=== PATIENT | female | born 1985 | race Two or more races ===

== ENCOUNTER 2024-07-21 11:16 | Outpatient (REF) | payer SELFPAY ==
--- OUTSIDE RECORDS SUMMARY | 2024-07-21 13:07 | XMS_ITS | Encounter Summary ---
Author Organization [employer] Address [address] [place] [address] Care Team Providers Care Associate Professor Of Archaeology Name Role Phone Corwin Blank MD Primary Care Prov ider Encounter Details Date Type Department Care Team (Latest Contact Info) Description 07/21/2024 Travel Social History Tobacco Use Types Packs/Day Years Used Date Smoking Tobacco: Never Smokeless Tobacco: Never Alcohol Use Standard Drinks/Week Comments Yes 0 (1 standard drink = 0.6 oz pur e alcohol) 2-3 times a year Depression Answer Date Recorded Patient Health Questionnaire-9 Score 0 05/25/2024 Patient Health Questionnaire-9 Score 0 05/25/2024 Last PHQ-9: Questionnaire Data Not on file 0 05/25/2024 Housing Stability Answer Date Recorded What is your housing situation today? I have carol reji 05/25/[address] you li ve. Do you have problems with any of the following? None of the above 05/25/2024 Food Insecurity Answer Date Recorded Within the past 12 months, y ou worried that your food would run out before you got money to buy more: Never True 05/25/2024 Within the past 12 months,th e food you bought just didn't last and you didn't have enough money to get more: Never True 12/2024 Transportation Answer Date Recorded In the past 12 months, has l ack of transportation kept you from medical appts, meetings, work or from getting things needed for daily living? No 05/25/2024 Utilities Answer Date Recorded In the past 12 months, has t he electric, gas, oil or water company threatened to shut off services in your home? No 05/25/2024 Depression Answer Date Recorded Patient Health Questionnaire-2 Score 0 05/25/2024 Internet Access Answer Date Recorded Internet Access Q1 Yes 05/25/2024 Internet Access Q2 Not on file 05/25/2024 Comments Unknown Sex and Gender Information Value Date Recorded Sex Assigned at Female 01/15/2022 10:23 AM EDT Legal Sex Female 10:23 AM EDT Gender Identity Female 04/30/2024 3:00 PM EST Sexual Orientation Straight 05/25/2024 12 :29 PM EDT documented as of this encounter Plan of Treatment Upcoming Encounters Date Type Department Care Team (Late st Contact Info) Description 08/26/2024 9:00 AM EDT Office Visit [facility] [address] [place] [address] Corwin Blank MD [address] [place] [address] documented as of this encounter Visit Diagnoses Not on filedocumented in this encounter Additional Health Concerns Assessment Noted Time PHQ-9 Depression Total Score: 0 05/26/19 25 1:15 PM EDT documented as of this encounter Care Teams Associate Professor Of Archaeology Relationship Specialty Start Date End Date Corwin Blank MD [address] [place] [address] PCP - General Internal Medicine 07/01/24 documented as of this encounter
--- OUTSIDE RECORDS SUMMARY | 2024-07-21 13:08 | XMS_ITS | Encounter Summary ---
Author Organization [employer] Address [address] [place] [address] Care Team Providers Care Trial Court Justice Name Role Phone Corwin Blank MD Primary Care Prov ider Encounter Details Date Type Department Care Team (Late st Contact Info) Description 07/21/2024 Telephone [facility] [address] [place], [place] [phone] Corwin Blank MD [address] [place] [address] Social History Tobacco Use Types Packs/Day Years [...] is your housing situation today? I have carolviet mendoza 05/25/[address] you li [...] PM EDT documented as of this encounter Miscellaneous Notes * Telephone Encounter - Mitzi Delgadillo RN - 07/21/2024 11:13 AM EDT Pt after appt stated needing TB test for work. documented in this encounter Plan of Treatment Upcoming Encounters Date Type Department Care Team (Late st Contact Info) Description 08/26/2024 9:00 AM EDT Office Visit [facility] [address] [place] [address] Corwin Blank MD [address] [place] [address] documented as of this encounter Visit Diagnoses Not on filedocumented in this encounter Additional Health Concerns Assessment Noted Time PHQ-9 Depression Total Score: 0 05/26/19 1:15 PM EDT documented as of this encounter Care Teams Trial Court Justice Relationship Specialty Start Date End Date Corwin Blank MD [address] [place] [address] PCP - General Internal Medicine 07/01/24 documented as of this encounter
--- OUTSIDE RECORDS SUMMARY | 2024-07-21 13:08 | XMS_ITS | Clinical Summary ---
Author Organization [facility] Address [address] [place] [address] Phone Care Team Providers Care Therapist Asst Name Role Phone Corwin Blank Primary Care Provide r Encounters Date Type Department Care Team Description 06/17/2024 11:00 AM EDT - 06/17/2024 11:59 PM EDT Hospital [facility] [address] [phone] Discharge Disposition: Home or Self Care from Last 3 Months Social History Tobacco Use Types Packs/Day Years Used Date Smoking Tobacco: Never Assessed Comments No Sex and Gender Information Value Date Recorded Sex Assigned at Female 06/03/2024 1:12 PM EDT Legal Sex Female 3:19 PM EST Gender Identity Female 06/03/2024 1:12 PM EDT Sexual Orientation Straight 06/15/2024 5: 04 PM EDT Obstetrics History Para Term AB IAB SAB Ectopic Multiple Livin g Live Births 2 Last Filed Vital Signs Vital Sign Reading Time Taken Comments Blood Pressure - - Pulse - - Temperature - - Respiratory Rate - - Oxygen Saturation - - Inhaled Oxygen Concentration - - Weight 77.1 kg (170 lb) 06/17/2024 11:12 AM EDT Height 162.6 cm (5' 4 ) 06/17/2024 11:12 AM EDT Body Mass Index 29.18 06/17/2024 11:12 AM EDT Plan of Treatment Health Maintenance Due Date Last Done Comments Cervical Cancer Screening: P ap Smear 11/07/2004 HIV Screening 04/16/2023 Hepatitis C Screening 04/16/2023 Social Influencers of Health Screening 04/16/2023 COVID-19 Vaccine (1 - 2023-2 5 season) 2023 DTaP,Tdap,and Td Vaccines (3 - Td or Tdap) 12/23/2023 12/22/2013, 04/25/2010 Influenza Vaccine (Season Ended) 2024 02/20/2018, 12/08/2013 Depression Screening 05/25/2025 05/25/2024 Breast Cancer Screening 06/17/2026 06/17/2024 Hepatitis B Vaccines Completed 07/02/2007, 11/19/2006, 06/26/2006 HIB Vaccines Aged Out No longer eligi ble based on patient's age to complete this topic HPV Vaccines Aged Out No longer eligi ble based on patient's age to complete this topic Hepatitis A Vaccines Aged Out No long er eligible based on patient's age to complete this topic IPV Vaccines Aged Out No longer eligi ble based on patient's age to complete this topic MMR Vaccines Aged Out No longer eligi ble based on patient's age to complete this topic Meningococcal ACWY Vaccine Aged Out N o longer eligible based on patient's age to complete this topic Meningococcal B Vaccine Aged Out No l onger eligible based on patient's age to complete this topic Pneumococcal Vaccine: Pediatrics (0 to 5 Years) and At-Risk Patients (6 to 64 Years) Aged Out No longer eligible b ased on patient's age to complete this topic RSV Immunization Patients Under 20 months Aged Out No longer eligible b ased on patient's age to complete this topic Varicella Vaccines Aged Out No longer eligible based on patient's age to complete this topic Procedures Procedure Name Priority Date/Time Associated Diagnosis Comments MG MAMMO DIGITAL SCREENING W IMTIAZ BILAT Routine 06/17/2024 11:35 AM EDT Encounter for screening mammogram for malignant neoplasm of breast from Last 3 Months Results * MG Mammo Digital Screening w Imtiaz bilat (06/17/2024 11:35 AM EDT) Anatomical Region Laterality Modality Breast Bilateral Mammography 06/18/2024 8:34 AM EDT Impressions 06/18/2024 8:36 AM EDT No evidence of breast malignancy. BI-RADS CATEGORY: 1 - NEGATIVE RECOMMENDATION: Screening bilateral mammogram is recommended in 1 year. Mammo Location: [facility], [address] [place] [address], [id number], . -------- FINAL REPORT -------- Dictated By: Lilian Callejas Dictated Date: 06/18/2024 08:34 ET Assigned Physician: Lilian Callejas Reviewed and Electronically Signed By: Lilian Callejas Signed Date: 06/18/2024 08:36 ET Workstation ID: [id number] Transcribed By: Self Edit Transcribed Date: 06/18/2024 08:34 ET Narrative 06/18/2024 8:36 AM EDT CLINICAL: 38 years old, Female, routine annual exam. ??Baseline exam. COMPARISON: No prior studies. ?? TECHNIQUE: Bilateral MLO and CC views were obtained digitally with 3-D mammogram (digital breast tomosynthesis). Computer-aided detection was utilized in evaluation of this exam (CAD). FINDINGS: There is no evidence of suspicious mass or architectural distortion. ??No worrisome calcifications are evident. BREAST DENSITY: B - There are scattered areas of fibroglandular density. Procedure Note Lilian Callejas MD - 06/18/2024 CLINICAL: 38 years old, Female, routine annual exam. Baseline exam. COMPARISON: No prior studies. TECHNIQUE: Bilateral MLO and CC views were obtained digitally with 3-Dmammogram (digital breast tomosynthesis). Computer-aided detection wasutilized in evaluation of this exam (CAD). FINDINGS: There is no evidence of suspicious mass or architectural distortion. Noworrisome calcifications are evident. BREAST DENSITY: B - There are scattered areas of fibroglandular density. IMPRESSION: No evidence of breast malignancy. BI-RADS CATEGORY: 1 - NEGATIVE RECOMMENDATION: Screening bilateral mammogram is recommended in 1 year. Mammo Location: [facility], [address] [place] [address], [address], . -------- FINAL REPORT -------- Dictated By: Lilian Callejas Dictated Date: 06/18/2024 08:34 ET Assigned Physician: Lilian Callejas Reviewed and Electronically Signed By: Lilian Callejas Signed Date: 06/18/2024 08:36 ET Workstation ID: [id number] Transcribed By: Self Edit Transcribed Date: 06/18/2024 08:34 ET Corwin Forrester IMG BI PROCEDURES Fin al Result from Last 3 Months Insurance [employer] [place] [id number] Care Teams Therapist Asst Relationship Specialty Start Date End Date Corwin Blank [address] [place] [id number] PCP - General Internal Medicine 06/03/24
--- OUTSIDE RECORDS SUMMARY | 2024-07-21 13:08 | XMS_ITS | Clinical Summary ---
Author Organization [employer] Address [address] [place] [address] Care Team Providers Care Automatic Data Processing Planner Name Role Phone Corwin Blank MD Primary Care Prov ider Allergies No known active allergies Medications triamcinolone (Kenalog) 0.1 % cream Apply topically if needed in the morning and at bedtime (pain and swelling). 30 g 5 Active Active Problems Problem Noted Date Diagnosed Date History of tubal ligation 07/21/2024 Overview (07/21/2024): tubal ligation in 03/2014 Headache 07/21/2024 Mass of upper inner quadrant of right breast 08/2024 Assessment & Plan (07/21/2024 11:14 AM EDT): R upper inner quadrant mass - Order diagnostic mammography and breast US following CRICO guidelines - Follow up on results when available Cervical cancer screening 07/21/2024 Assessment & Plan (07/21/2024 11:15 AM EDT): 38 y.o. here for cervical cancer screening. Will continue monitoring following ASCCP guidelines. Tuberculosis screening 07/21/2024 Encounter for medical examination to establish c are 05/25/2024 Assessment & Plan (05/25/2024 1:57 PM EDT): Last pcp visit >10yrs ER: chest/back pain March 2024 [facility] Hospitalization: - Pmhx: asthma Pshx: gallbladder 2017, csec 2014 All:- Meds: - A0 LMP: 05/25/24 Menarche: 11yrs Pap smear: >10yrs Encounter for screening mamm ogram for malignant neoplasm of breast 05/25/2024 Encounters Date Type Department Care Team Description 07/21/2024 10:40 AM EDT Procedure Visit [facility] [address] [place] [address] Abimbola Lawrence MD Encounter for immunization (Primary Dx); Mass of upper inner quadrant of right breast; Cervical cancer screening; Tuberculosis screening 07/21/2024 Telephone [facility] [address] [place] [address] Corwin Blank MD 07/21/2024 Travel 06/11/2024 Telephone [facility] [address] [place] [address] Corwin Blank MD Referral 05/25/2024 1:45 PM EDT Telemedicine [facility] [address] [place] [address] Corwin Blank MD Encounter for medical examination to establish care (Primary Dx); Encounter for screening mammogram for malignant neoplasm of breast 05/22/2024 Telephone [facility] [address] [place] [address] Corwin Blank MD chart prep from Last 3 Months Immunizations Name Administration Dates Next Due Hep B, Unspecified 07/02/2007,11/19/2006, 007 Influenza, IIV3, injectable 02/20/2018 Influenza, seasonal, injecta ble, preservative free 12/08/2013 Tdap 07/21/2024,12/22/2013,04/25/2010 Family History Medical History Relation Name Comments Hyperlipidemia Father Lymphoma Maternal Cousin Diabetes Mother Hyperlipidemia Sister Relation Name Status Comments Father Maternal Cousin Alive Mother Sister Social History Tobacco Use Types Packs/Day Years Used Date Smoking Tobacco: Never Smokeless Tobacco: Never Tobacco Cessation:Counseling Given: Not Answered Alcohol Use Standard Drinks/Week Comments Yes 0 (1 standard drink = 0.6 oz pur e alcohol) 2-3 times a year Depression Answer Date Recorded Patient Health Questionnaire-9 Score 0 05/25/2024 Patient Health Questionnaire-9 Score 0 05/25/2024 Last PHQ-9: Questionnaire Data Not on file 0 05/25/2024 Housing Stability Answer Date Recorded What is your housing situation today? I have carol mendoza 05/25/[address] you [...] Orientation Straight 05/25/2024 12 :29 PM EDT Last Filed Vital Signs Vital Sign Reading Time Taken Comments Blood Pressure 114/78 07/21/2024 10:48 AM EDT Pulse 82 07/21/2024 10:48 AM EDT Temperature 36.7 ??C (98.1 ??F) 07/21/2024 10:48 AM E DT Respiratory Rate 20 07/21/2024 10:48 AM EDT Oxygen Saturation 98% 07/21/2024 10:48 AM EDT Inhaled Oxygen Concentration - - Weight 79.5 kg (175 lb 3.2 oz) 07/21/2024 10:48 AM EDT Height 162 cm (5' 3.78 ) 07/21/2024 10:48 AM EDT Body Mass Index 30.28 07/21/2024 10:48 AM EDT Plan of Treatment Upcoming Encounters Date Type Department Care Team (Late st Contact Info) Description 08/26/2024 9:00 AM EDT Office Visit [facility] [address] [place] [address] Corwin Blank MD [address] [place] [address] Health Maintenance Due Date Last Done Comments HIV Screening 1983 Family Planning (PISQ) 11/07/1998 Hepatitis C Screening 11/07/2001 Pap Smear 11/07/2004 Cervical Cancer Screening 11/07/2013 HPV/Cotest 11/07/2013 COVID-19 Vaccine (2023-2 5 season) 2023 Influenza Vaccine (#1) 2024 8, 12/08/2013 Postponed from 11/17/2023 (Patient Refused) Alcohol/Substance Use Screening 05/25/2025 05/25/2024 Depression Screening 05/25/2025 05/25/2024, 05/25/2024 SDOH Screening 05/25/2025 05/25/2024 Tobacco Screening 07/21/2025 07/21/2024 Mammogram 06/17/2026 06/17/2024, 06/17/2024 Zoster Vaccines (1 of 2) 11/07/2033 DTaP/Tdap/Td Vaccines (4 - T d or Tdap) 07/21/2034 07/21/2024, 12/22/2013, 04/25/2010 RSV Patients and Patients Aged 60 years or older (1 - 1-dose 75+ series) 11/07/2058 Hepatitis B Vaccines Completed 07/02/2007, 11/19/2006, 06/26/2006 [...] patient's age to complete this topic Meningococcal Vaccine Aged Out No tre bella eligible based on patient's age to complete this topic Pneumococcal Vaccine: Pediatrics (0 to 5 Years) and At-Risk Patients (6 to 49) Years) Aged Out No longer eligible b ased on patient's age to complete this topic RSV under 20 months Aged Out No longe r eligible based on patient's age to complete this topic Rotavirus Vaccines Aged Out No longer eligible based on patient's age to complete this topic Insurance GENERIC COMMERCIAL MD [place] [id number] Care Teams Automatic Data Processing Planner Relationship Specialty Start Date End Date Corwin Blank MD [address] [place] [address] PCP - General Internal Medicine 07/01/24
--- OUTSIDE RECORDS SUMMARY | 2024-07-21 13:08 | XMS_ITS | Encounter Summary ---
Author Organization [employer] Address [address] [place] [address] Care Team Providers Care Sheriff Detective Name Role Phone Corwin Blank MD Primary Care Prov ider Reason for Referral * Imaging (Routine) - Authorized Specialty Diagnoses / Procedures Referred By Contac t Referred To Contact Radiology Diagnoses Mass of upper inner quadrant of right breast Procedures BI Mammogram Diagnostic Tomosynthesis Right Abimbola Lawrence MD [address] [place] [address] Phone: tel: fax: [address] Phone: tel: fax: Referral ID Status Reason Start Date Expiration Date V isits Requested Visits Authorized [id number] Authorized 07/21/2024 07/21/2025 1 1 * Imaging (Routine) - Authorized Specialty Diagnoses / Procedures Referred By Contac t Referred To Contact Radiology Diagnoses Mass of upper inner quadrant of right breast Procedures BI US Breast Complete Right Abimbola Lawrence MD [address] [place] [address] Phone: tel: fax: [address] Phone: tel: fax: Referral ID Status Reason Start Date Expiration Date V isits Requested Visits Authorized [id number] Authorized 07/21/2024 07/21/2025 1 1 Reason for Visit * Reason Comments Cervical Cancer Screening Encounter Details Date Type Department Care Team (Latest Contact Info) Description 07/21/2024 10:40 AM EDT Procedure Visit [facility] PEDS [address] [place] [address] Abimbola Lawrence MD [address] [place] [address] Encounter for immunization (Primary Dx); Mass of upper inner quadrant of right breast; Cervical cancer screening; Tuberculosis screening Social History Tobacco Use Types Packs/Day Years [...] PM EDT documented as of this encounter Last Filed Vital Signs Vital Sign Reading [...] Mass Index 30.28 07/21/2024 10:48 AM EDT documented in this encounter Progress Notes * Abimbola Lawrence MD - 07/21/2024 10:40 AM EDT Images from the original note were not included. Subjective Patient ID: Lian Gong is a 38 y.o. female who presents for Cervical Cancer Screening. 38 y.o. female here for annual well woman preventive exam. LMP: Patient's last menstrual period was 07/03/2024 (approximate). Sexual activity: Social History Substance and Sexual Activity Sexual activity: Yes Partners: Male control/protection: Female Sterilization intention: BC method: Smoking hx: Tobacco Use: Low Risk (07/21/2024) ? Tobacco ? Smoking Tobacco Use: Never ? Smokeless Tobacco Use: Never ? Passive Exposure: Not on file Alcohol use hx: Social History Substance and Sexual Activity Alcohol use: Yes Comment: 2-3 times a year OBHx: # 1 - Date: None, Sex: None, Weight: None, GA: None, Type: None, Apgar1: None, Apgar5: None, Living: None, Comments: None # 2 - Date: None, Sex: None, Weight: None, GA: None, Type: None, Apgar1: None, Apgar5: None, Living: None, Comments: None IPV: Denies IPV Reviewed family hx Review of patient's family history indicates: Problem: Diabetes Relation: Mother Name: Age of Onset: (Not Specified) Problem: Hyperlipidemia Relation: Father Name: Age of Onset: (Not Specified) Problem: Hyperlipidemia Relation: Sister Name: Age of Onset: (Not Specified) Problem: Lymphoma Relation: Maternal Cousin Name: Age of Onset: (Not Specified) Health Maintenance: No results found for: HMPAP , HMMAMMO , HMCOLON Review of Systems Constitutional: Negative for appetite change, fatigue and fever. HENT: Negative for congestion, postnasal drip and rhinorrhea. Eyes: Negative for discharge and redness. Respiratory: Negative for apnea, cough, chest tightness and shortness of breath. Cardiovascular: Negative for chest pain. Gastrointestinal: Negative for abdominal pain. Endocrine: Negative for polyphagia. Genitourinary: Negative for difficulty urinating, dysuria and urgency. Musculoskeletal: Negative for arthralgias. Neurological: Negative for dizziness, light-headedness, numbness and headaches. Hematological: Negative for adenopathy. Does not bruise/bleed easily. Objective Visit Vitals BP 114/78 (BP Location: Right arm, Patient Position: Sitting, BP Cuff Size: Large adult) Pulse 82 Temp 98.1 ??F (36.7 ??C) (Oral) Resp 20 Ht 5' 3.78 (1.62 m) Wt 175 lb 3.2 oz (79.5 kg) LMP 07/03/2024 (Approximate) SpO2 98% BMI 30.28 kg/m?? Smoking Status Never BSA 1.89 m?? Physical Exam Vitals reviewed. Exam conducted with a customer service trainer present. HENT: Head: Normocephalic and atraumatic. Pulmonary: Effort: Pulmonary effort is normal. Chest: Chest wall: No deformity, tenderness or crepitus. Breasts: Breasts are symmetrical. Right: Mass present. No inverted nipple, nipple discharge, skin change or tenderness. Left: Normal. No inverted nipple, mass, nipple discharge, skin change or tenderness. Genitourinary: Vagina: Normal. Cervix: Normal. Rectum: Normal. Comments: Skin tag Musculoskeletal: Cervical back: Normal range of motion. Lymphadenopathy: Upper Body: Right upper body: No supraclavicular, axillary or pectoral adenopathy. Left upper body: No supraclavicular, axillary or pectoral adenopathy. Psychiatric: Mood and Affect: Mood normal. Assessment/Plan Problem List Items Addressed This Visit Mass of upper inner quadrant of right breast R upper inner quadrant mass - Order diagnostic mammography and breast US following CRICO guidelines - Follow up on results when available Relevant Orders BI US Breast Complete Right BI Mammogram Diagnostic Tomosynthesis Right Cervical cancer screening 38 y.o. here for cervical cancer screening. Will continue monitoring following ASCCP guidelines. Relevant Orders Pap Smear HPV High Risk with Reflex to Subtypes Tuberculosis screening Relevant Orders T-SPOT??.TB Other Visit Diagnoses Encounter for immunization - Primary Relevant Orders TDAP VACCINE 7 yrs + (Completed) documented in this encounter Miscellaneous Notes * Assessment & Plan Note - Abimbola Lawrnece MD - 07/21/2024 11:15 AM EDT Associated Problem(s): Cervical cancer screening 38 y.o. here for cervical cancer screening. Will continue monitoring following ASCCP guidelines. * Assessment & Plan Note - Abimbola Lawrence MD - 07/21/2024 11:14 AM EDT Associated Problem(s): Mass of upper inner quadrant of right breast R upper inner quadrant mass - Order diagnostic mammography and breast US following CRICO guidelines - Follow up on results when available documented in this encounter Plan of Treatment Upcoming Encounters Date Type Department Care Team (Late st Contact Info) Description 08/26/2024 9:00 AM EDT [facility] [address] [place], [place] [phone] Corwin Blank MD [address] [place] [address] Scheduled Orders Name Type Priority Associated Diagnoses Order Schedule BI US Breast Complete Right Imaging Routine Mass of upper inner quadrant of right breast Expected: 07/21/2024, Expires: 07/21/2025 BI Mammogram Diagnostic Tomosynthesis Right Imaging Routine Mass of upper inner quadrant of right breast Expected: 07/21/2024, Expires: 09/20/2025 Pap Smear Pathology and Cytology Routine Cervical cancer screening Ordered: 07/21/2024 HPV High Risk with Reflex to Subtypes Lab Routine Cervical cancer screening Ordered: 07/21/2024 T-SPOT??.TB Lab Routine Tuberculosis screening Expected: 07/21/2024 (Approximate), Expires: 07/21/2025 documented as of this encounter Visit Diagnoses Diagnosis Encounter for immunization- Primary Mass of upper inner quadrant of right breast Cervical cancer screening Screening for malignant neoplasm of the cervix Tuberculosis screening Screening examination for pulmonary tuberculosis documented in this encounter Additional Health Concerns Assessment Noted Time PHQ-9 Depression Total Score: 0 05/26/19 1:15 PM EDT documented as of this encounter Care Teams Sheriff Detective Relationship Specialty Start Date End Date Corwin Blank MD [address] [place] [id number] PCP - General Internal Medicine 07/01/24 documented as of this encounter
[2024-07-24 12:44] LABS: TS Negative Control Passed; TS Panel A 0; TS Panel B 1; TS Positive Control Passed; TSpotTB Negative (Negative)
[2024-07-28 14:23] LABS: HPV Genotype 16 Negative (Negative); HPV Genotype 18 Negative (Negative); HPV High Risk Positive (Negative)
== END 2024-07-21 11:17 | disposition home or self-care (01) ==
LOC: HO.CHCLDS 11:16
PROVIDERS: Visit Provider Family Medicine
DX: Z12.4 Encounter for screening for malignant neoplasm of cervix (principal); Z11.1 Encounter for screening for respiratory tuberculosis
CPT/HCPCS: 36415; 86481; 87626; 88175

== ENCOUNTER 2024-08-26 09:38 | Outpatient (REF) | payer SELFPAY ==
--- OUTSIDE RECORDS SUMMARY | 2024-08-26 10:35 | XMS_ITS | Clinical Summary ---
Author Organization [employer] Address [address] [place] [address] Care Team Providers Care Electric Meter Technician Name Role Phone Corwin Blank MD Primary Care Prov ider Allergies No known active allergies Medications triamcinolone (Kenalog) 0.1 % cream Apply topically if needed in the morning and at bedtime (pain and swelling). 30 g 5 Active Active Problems Problem Noted Date Diagnosed Date ASCUS with positive high risk HPV cervical 08/05 History of tubal ligation 07/21/2024 Overview (07/21/2024): [...] visit >10yrs ER: chest/back pain March 2024 [facility] Hospitalization: - Pmhx: asthma Pshx: gallbladder 2018, [facility] 2014 All:- Meds: - A0 LMP: 05/25/24 Menarche: 11yrs Pap smear: >10yrs Encounter for screening mamm ogram for malignant neoplasm of breast 05/25/2024 Encounters Date Type Department Care Team Description 08/26/2024 9:00 AM EDT Office Visit [facility] [address] [place] [address] Corwin Blank MD Obesity (BMI 30.0-34.9) (Primary Dx) 08/26/2024 Travel 08/17/2024 Patient Outreach [address] [address] Corwin Blank MD Pre-visit Planning (SDOH screening completed on 05/25/24) 08/06/[address] [address] Corwin Blank MD Call Back Request 08/05/2024 Telephone [facility] [address] [place] [address] Abimbola Lawrence MD 07/29/2024 Results Follow-Up [facility] [address] [place] [address] Abimbola Lawrence MD BI US Breast Complete Right 07/21/2024 10:40 AM EDT Procedure Visit [facility] [address] [place] [address] Abimbola Lawrence MD Encounter for immunization (Primary Dx); Mass of upper inner quadrant of right breast; Cervical cancer screening; Tuberculosis screening 07/21/2024 Telephone [facility] [address] [place] [address] Corwin Blank MD 07/21/2024 Travel 06/11/[address] [address] Corwin Blank MD Referral from Last 3 Months Immunizations Immunization Administration Dates Next Due Hep B, Unspecified [...] Sign Reading Time Taken Comments Blood Pressure 132/84 08/26/2024 9:04 AM EDT Pulse 82 08/26/2024 9:04 AM EDT Temperature 36.6 ??C (97.8 ??F) 08/26/2024 9:04 AM ED T Respiratory Rate 20 08/26/2024 9:04 AM EDT Oxygen Saturation 98% 07/21/2024 10:48 AM EDT Inhaled Oxygen Concentration - - Weight 78.9 kg (174 lb) 08/26/2024 9:04 AM EDT Height 160 cm (5' 3 ) 08/26/2024 9:04 AM EDT Body Mass Index 30.82 08/26/2024 9:04 AM EDT Plan of Treatment Health Maintenance Due Date Last Done Comments HIV Screening 1985 Disability Screening 1985 Family Planning (PISQ) 11/07/1998 Hepatitis C Screening 11/07/2001 COVID-19 Vaccine ( season) 2023 Influenza Vaccine (Season Ended) 2024 02/20/2018, 12/08/2013 Alcohol/Substance Use Screening 05/25/2025 05/25/2024 Depression Screening 05/25/2025 05/25/2024, 05/26/19 25 SDOH Screening 05/25/2025 05/25/2024 Tobacco Screening 07/21/2025 07/21/2024 Mammogram 07/28/2026 07/28/2024, 07/16, 07/28/2024, Additional history exists Pap Smear 07/22/2027 07/21/2024 Cervical Cancer Screening 07/21/2029 HPV/Cotest 07/21/2029 07/21/2024 Zoster Vaccines (1 of 2) 11/07/2033 DTaP/Tdap/Td Vaccines (4 - Td or Tdap) 07/21/2034 07/21/2024, 12/22/2013, 04/25/2010 RSV [...] 49) Years) Aged Out No longer eligible based on patient's age to complete this topic RSV under 20 months Aged Out No longe r eligible based on patient's age to complete this topic Rotavirus Vaccines Aged Out No longer eligible based on patient's age to complete this topic Procedures Procedure Name Priority Date/Time Associated Diagnosis Comments BI US BREAST COMPLETE RIGHT Routine 07/28/2024 Mass of upper inner quadrant of right breast T-SPOT(R).TB Routine 07/21/2024 11:18 AM EDT Tuberculosis screening PAP SMEAR Routine 07/21/2024 11:12 AM EDT Cervical cancer screening HPV DNA, LOW/HIGH RISK Routine 07/21/2024 11:12 AM EDT Cervical cancer screening from Last 3 Months Results * BI US Breast Complete Right (07/28/2024) Anatomical Region Laterality Modality Breast Right Ultrasound us Abimbola Lawrence MD [facility] US PROCEDURES Final Resul t * T-SPOT??.TB (07/21/2024 11:18 AM EDT) T Spot TB Negative Negative [facility] Comment:A negative test resu lt does not exclude the possibilityof exposure to or infection with Mycobacteriumtuberculosis (M. tuberculosis). Patients with recentexposure to TB infected individuals exhibiting anegative T-SPOT.TB result should be considered forretesting within 6 weeks or if other relevant clinicalsymptoms indicate. Results from T-SPOT.TB testing mustbe used in conjunction with each individual'sepidemiological history, current medical status,and results of other diagnostic evaluations.The T-SPOT.TB test is qualitative and results arereported as positive, borderline, or negative, giventhat the test controls perform as expected. In linewith the Centers for Disease Control and Prevention's2010 recommendation to report quantitative measurementsalongside the qualitative result, the laboratoryprovides spot counts for informational purposes only.The T-SPOT.TB test should not be interpreted as aquantitative test. TS PANEL A 0 [facility] TS PANEL B 1 [facility] Negative Control Passed [facility] Positive Control Passed [facility] Comment:For additional infor mation, please refer tohttp://education.SensioL[employer]/faq/YTF995(This link is being provided for informational/educational purposes only.)REPORT COMMENT:RECD IN CHANTILLYTHIS TEST WAS PERFORMED AT:[employer] [id number] [place] [address]CCVCJSNMADISON JENKINS MD,PHD 07/21/2024 11:1 8 AM EDT 07/21/2024 2:28 PM EDT us Abimbola Lawrence MD LAB BLOOD ORDERABLES Final Re sult [facility] [address] [place] [phone] * (ABNORMAL) HPV High Risk with Reflex to Subtypes (07/21/2024 11:12 AM EDT) HPV High Risk Positive(A) Negative [facility] HPV Genotype 16 Negative Negative [facility] HPV Genotype 18 Negative Negative [facility] Comment:HPV testing performe d at [facility] (CLIA#[id number]), [address] [place] [address].Testing for HPV was performed using the Konstantin SABI Note0system. The presence of HPV in the female genital tract isassociated with a number of diseases, including cervicalcarcinoma. The HPV DNA high risk pool tests for HPV 31, 33,35, 39, 45, 51, 52, 56, 58, 59, 66 and 68. The testing forHPV 16 and 18 genotypes has also been performed. A positiveresult indicates detection of nucleic acid sequences fromone or more subtypes, whereas a negative result indicatessuch sequences were not detected. Pap Vial 07/21/2024 11:1 2 AM EDT 07/22/2024 6:00 AM EDT us Abimbola Lawrence MD LAB BLOOD ORDERABLES Final Re sult [facility] [address] [place] [phone] * Pap Smear (07/21/2024 11:12 AM EDT) Swab 07/21/2024 11:1 2 AM EDT 07/22/2024 6:00 AM EDT Narrative [facility] - 07/28/2024 8:21 PM EDT ----- ------- Name: Demota-Martinez,Lian M ? Age/Sex: 38/F ? : 1985 Unit#: [id number] ?? Attend Dr: Abimbola Lawrence MD ?Re07/21/24 ?Status: DEP REF ? Location: [facility] ? Disch: ? ----- ------- SPEC : [id number] ? RECD: 07/22/24 ? STATUS: ??SOUT ? REQ NUM: [id number] ? APOLLO: 07/21/24 ? SUBM DR: Abimbola Lawrence MD ? ENTERED: ??07/22/24 ?SP TYPE: Pap Smr ?OTHR : ? ORDERED: ??Pap Smear, PAP path review ? Interpretation ?? General Category: ?? Epithelial cell abnormality. ?? Adequacy: ?Endocervical component absent. ?? Interpretation: ?Atypical squamous cells of undetermined significance. ? HPV High Risk: ??Positive ? HPV Genotyping 16: ??Negative ?? HPV Genotyping 18: ??Negative ?Clinical Information LMP:07/03/24 Previous PAP test:Unknown date/findings ? Material Received ?? ThinPrep-Cervical ----- ------- Signed (signature on file) Dipti Arley 07/28/242020 ? ----- ------- ? END OF REPORT ? us Abimbola Lawrence MD LAB CYTOLOGY ORDERABLES Final Result [facility] [address] [place] [phone] from Last 3 Months Insurance #1 [place] [address] GENERIC COMMERCIAL MD BUBBA [id number] Care Teams Electric Meter Technician Relationship Specialty Start Date End Date Corwin Blank MD [address] [place] [phone] PCP - General Internal Medicine 07/01/24
[2024-08-26 14:26] LABS: MANUAL DIFF FLAG NO
[2024-08-26 14:33] LABS: Basophils Absolute Auto 0.1 X10*3/uL (0.0-0.2); Basophils Percent Auto 0.9 % (0-2); Eosinophils Absolute Auto 0.1 X10*3/uL (0.0-0.4); Eosinophils Percent Auto 1.7 % (0-4); Hematocrit 27.9 % (37.0-47.0); Hemoglobin 7.6 g/dl (12.0-16.0); Imm Gran Abs Auto 0.02 X10*3/uL (0.00-0.03); Imm Gran Pct Auto 0.3 % (0.0-0.4); Lymphocytes Absolute Auto 2.2 X10*3/uL (1.2-4.9); Lymphocytes Percent Auto 37.6 % (20-40); Mean Corpuscular HGB Conc 27.2 g/dl (31.0-35.0); Mean Corpuscular Hemoglobin 16.1 pg (27.0-33.0); Mean Platelet Volume 9.9 fL (9.4-12.3); Monocytes Absolute Auto 0.5 X10*3/uL (0.1-1.2); Neutrophils Percent Auto 51.5 % (45-73); Platelet Count 412 X10*3/uL (160-400); Red Blood Count 4.71 X10*6/uL (4.20-5.50); Red Cell Distribution Width 21.7 % (11.0-16.0); White Blood Count 5.8 X10*3/uL (4.8-10.8)
[2024-08-26 14:34] LABS: Mean Corpuscular Volume 59.2 fL (80.0-98.0)
[2024-08-26 15:02] LABS: Alanine Aminotransferase 14 U/L (0-31); Alkaline Phosphatase 62 U/L (39-117); Anion Gap 9 (12-20); Aspartate Amino Transferase 22 U/L (5-31); Bilirubin Total 0.3 mg/dL (0.0-1.0); Blood Urea Nitrogen 14 mg/dL (9-16); Calcium 9.5 mg/dL (8.4-10.2); Carbon Dioxide 24 mmol/L (22-29); Chloride 106 mmol/L (96-108); Cholesterol 139 mg/dL (<200); Estimated Glomerular Filt Rate > 60; Glucose Random 84 mg/dL (60-115); HDL Cholesterol 44 mg/dL (>40); LDL Cholesterol Calculated 85 mg/dL (<100); Potassium 4.1 mmol/L (3.3-5.1); Sodium 135 mmol/L (135-145); Total Protein 7.2 g/dL (6.5-8.0); Triglycerides 51 mg/dL (<150)
[2024-08-26 15:09] LABS: TSH reflex Free T4 1.14 uIU/mL (0.32-4.0)
[2024-08-26 15:43] LABS: Estimated Average Glucose 111 mg/dL; Hemoglobin A1c % 5.5 % (<6.0)
[2024-08-27 08:10] LABS: HIV AB/AG Nonreactive (Nonreactive); HIV Num 1 0.07 S/CO (0.00-0.99); ~HepC Num1 0.15 S/CO (0.00-0.79); ~Hepatitis C Antibody Nonreactive (Nonreactive)
== END 2024-08-26 09:39 | disposition home or self-care (01) ==
LOC: HO.CHCLDS 09:38
PROVIDERS: Visit Provider Internal Medicine
DX: E66.811 Obesity, class 1 (principal)
CPT/HCPCS: 36415; 80053; 80061; 83036; 84443; 85025; 86803; 87389

== ENCOUNTER 2024-08-27 08:42 | Outpatient (REF) | payer SELFPAY ==
--- OUTSIDE RECORDS SUMMARY | 2024-08-27 09:04 | XMS_ITS | Clinical Summary ---
Author Organization [employer] Address [address] [place] [address] Care Team Providers Care Design Verification Engineer Name Role Phone Corwin Blank MD Primary Care Prov ider Allergies No known active allergies Medications triamcinolone (Kenalog) 0.1 % cream Apply topically if needed in the morning and at bedtime (pain and swelling). 30 g 5 Active Active Problems Problem Noted Date Diagnosed Date Obesity (BMI 30.0-34.9) 08/26/2024 Assessment & Plan (08/26/2024 12:45 PM EDT): Encouraged low calorie diet, exercise as tolerated, follow up as needed ASCUS with positive high risk HPV cervical 08/05 Assessment & Plan (08/26/2024 12:43 PM EDT): Referred for colposcopy, pending ob-bowling ball grader appointment History of tubal ligation 07/21/2024 Overview (07/21/2024): [...] visit >10yrs ER: chest/back pain March 2024 [facility] Hospitalization: - Pmhx: asthma Pshx: gallbladder 2018, [facility] 2014 All:- Meds: - A0 LMP: 05/25/24 Menarche: 11yrs Pap smear: >10yrs Encounter for screening mamm ogram for malignant neoplasm of breast 05/25/2024 Encounters Date Type Department Care Team Description 08/26/2024 9:00 AM EDT Office Visit [facility] [address] [place] [address] Corwin Blank MD Obesity (BMI 30.0-34.9) (Primary Dx); Dietary counseling; Exercise counseling; ASCUS with positive high risk HPV cervical 08/26/2024 Telephone [facility] [address] [place] [address] Corwin Blank MD Results; Lab Orders 08/26/2024 Orders Only [facility] [address] [place] [address] Corwin Blank MD Anemia, unspecified type (Primary Dx) 08/26/2024 Travel 08/17/2024 Patient Outreach [facility] [address] [place] [phone] Corwin Blank MD Pre-visit Planning (SDOH screening completed on 05/25/24) 08/06/[address] [address] Corwin Blank MD Call Back Request 08/05/2024 Telephone [facility] [address] [place] [address] Abimbola Lawrence MD 07/29/2024 Results Follow-Up [facility] [address] [place] [address] Abimbola Lawrence MD BI US Breast Complete Right 07/21/2024 10:40 AM EDT Procedure Visit [facility] [address] [place] [address] Abimbola Lawrence MD Encounter for immunization (Primary Dx); Mass of upper inner quadrant of right breast; Cervical cancer screening; Tuberculosis screening 07/21/2024 Telephone [facility] [address] [place] [address] Corwin Blank MD 07/21/2024 Travel 06/11/2024 Telephone [facility] [address] [place] [address] Corwin Blank MD Referral from Last 3 [...] Date Last Done Comments HIV Screening 1985 08/26/2024 Disability Screening 1985 Family Planning (PISQ) 11/07/1998 Hepatitis C Screening 11/07/2001 08/26/2024 COVID-19 Vaccine ( season) 2023 Influenza Vaccine [...] Procedure Name Priority Date/Time Associated Diagnosis Comments HEPATITIS C AB W/REFL TO HCV RNA, QN, PCR Routine 08/26/2024 9:45 AM EDT Obesity (BMI 30.0-34.9) HIV 1/2 ANTIGEN/ANTIBODY, FOURTH GENERATION W/RFL Routine 08/26/2024 9:45 AM EDT Obesity (BMI 30.0-34.9) TSH W/REFLEX TO FT4 Routine 08/26/2024 9 :45 AM EDT Obesity (BMI 30.0-34.9) HEMOGLOBIN A1C Routine 08/26/2024 9:45 AM EDT Obesity (BMI 30.0-34.9) LIPID PANEL, STANDARD Routine 08/26/2024 9:45 AM EDT Obesity (BMI 30.0-34.9) COMPREHENSIVE METABOLIC PANEL Routine 08/26/2024 9:45 AM EDT Obesity (BMI 30.0-34.9) CBC WITH AUTO DIFFERENTIAL Routine 08/26/2024 9:45 AM EDT Obesity (BMI 30.0-34.9) BI US BREAST COMPLETE RIGHT Routine 07/28/2024 Mass of upper inner quadrant of right breast T-SPOT(R).TB Routine 07/21/2024 11:18 AM EDT Tuberculosis screening PAP SMEAR Routine 07/21/2024 11:12 AM EDT Cervical cancer screening HPV DNA, LOW/HIGH RISK Routine 11:12 AM EDT Cervical cancer screening from Last 3 Months Results * TSH W/Reflex to FT4 (08/26/2024 9:45 AM EDT) TSH reflex Free T4 1.14 0.32 - 4.0 uIU/mL [facility] Blood Venous blood specimen / Unknown 08/26/2024 9:45 AM EDT 08/26/2024 2:20 PM EDT us Corwin Forrester MD LAB BLOOD ORDERABL ES Final Result [facility] [address] [place] [phone] * (ABNORMAL) CBC auto differential (08/26/2024 9:45 AM EDT) White Blood Count 5.8 4.8 - 10.8 X10*3/uL [facility] Red Blood Count 4.71 4.20 - 5.50 X10*6/uL [facility] Hemoglobin 7.6(L) 12.0 - 16.0 g/dl [facility] Hematocrit 27.9(L) 37.0 - 47.0 % [facility] Mean Corpuscular Volume 59.2(L) 80.0 - 98.0 fL [facility] Mean Corpuscular Hemoglobin 16.1(L) 27.0 - 33.0 pg [facility] Mean Corpuscular HGB Conc 27.2(L) 31.0 - 35.0 g/dl [facility] Red Cell Distribution Width 21.7(H) 11.0 - 16.0 % [facility] Platelet Count 412(H) 160 - 400 X10*3/uL [facility] Mean Platelet Volume 9.9 9.4 - 12.3 fL [facility] Neutrophils Percent Auto 51.5 45 - 73 % [facility] Imm Gran Pct Auto 0.3 0.0 - 0.4 % [facility] Lymphocytes Percent Auto 37.6 20 - 40 % [facility] Monocytes Percent Auto 8.0 2 - 11 % [facility] Eosinophils Percent Auto 1.7 0 - 4 % [facility] Basophils Percent Auto 0.9 0 - 2 % [facility] NRBC Pct Auto 0.0 0.0 - 0.2 /100WBC [facility] Neutrophils Absolute Auto 3.0 2.0 - 8.3 x10*3/uL [facility] Imm Gran Abs Auto 0.02 0.00 - 0.03 X10*3/uL [facility] Lymphocytes Absolute Auto 2.2 1.2 - 4.9 X10*3/uL [facility] Monocytes Absolute Auto 0.5 0.1 - 1.2 X10*3/uL [facility] Eosinophils Absolute Auto 0.1 0.0 - 0.4 X10*3/uL [facility] Basophils Absolute Auto 0.1 0.0 - 0.2 X10*3/uL [facility] NRBC Abs Auto 0.000 0.0 - 0.012 X10*3/uL [facility] Blood Venous blood specimen / Unknown 08/26/2024 9:45 AM EDT 08/26/2024 2:20 PM EDT Corwin Forrester MD LAB BLOOD ORDERABL ES Final Result Performing Organization Address [facility]/ZIP Co de Phone Number [facility] [address] [place] [phone] * Hepatitis C Antibody with Reflex to HCV, RNA, Quantitative, Real-Time PCR (08/26/2024 9:45 AM EDT) Hepatitis C Antibody Nonreactive Nonreactive [facility] Comment:Antibodies to HCV no t detected; does not exclude early acuteHCV infection. Blood Venous blood specimen / Unknown 08/26/2024 9:45 AM EDT 08/26/2024 2:20 PM EDT us Corwin Forrester MD LAB BLOOD ORDERABL ES Final Result Performing Organization Address [facility] Co de Phone Number [facility] [address] [place] [phone] * HIV-1/2 Antigen and Antibodies, Fourth Generation, with Reflexes (08/26/2024 9:45 AM EDT) HIV AB/AG Nonreactive Nonreactive [facility] Comment:HIV-1 p24 Ag and/or HIV-1/HIV-2 Ab not detected.A test result that is nonreactive does not exclude thepossibility of exposure to or infection with HIV-1 and/orHIV-2. Nonreactive results in this assay for individualswith prior exposure to HIV-1 and/or HIV-2 may be due toantigen and antibody levels that are below the limit ofdetection of this assay.The BandPage HIV Ag/Ab Combo assay result andsupplemental assay results should be interpreted inconjunction with the patient's clinical presentation,history and other laboratory results. If the results areinconsistent with clinical evidence, additional testing issuggested to confirm the result. Blood Venous blood specimen / Unknown 08/26/2024 9:45 AM EDT 08/26/2024 2:20 PM EDT Corwin Forrester MD LAB BLOOD ORDERABL ES Final Result Performing Organization Address [facility] Co de Phone Number [facility] [address] [place] [phone] * Hemoglobin A1c (08/26/2024 9:45 AM EDT) Hemoglobin A1c 5.5 <6.0 % [facility] Comment:Hemoglobin A1C Refer ence Range Adults: 4.8 - 6.0 % Non diabetic: < 6.0 % Goal: < 7.0 %Additional Action Suggested: > 8.0 %Note: Hemoglobin A1c results are invalid for patients with abnormal amounts of HbF. Blood transfusions may impact the HbA1c concentration in the patient sample. Estimated Average Glucose 111 mg/dL [facility] Comment:eAG = Estimated ave rage glucose which is %A1C expressed asaverage glucose, using the formula of the F8A-QyrsgvsWpfwwxd Glucose study (ADAG), Diabetes Care, Vol.31,#8,Oct. 2007 Blood Venous blood specimen / Unknown 08/26/2024 9:45 AM EDT 08/26/2024 2:20 PM EDT Corwin Forrester MD LAB BLOOD ORDERABL ES Final Result Performing Organization Address [facility] Co de Phone Number [facility] [address] [place] [phone] * Lipid Panel, Standard (08/26/2024 9:45 AM EDT) Triglycerides 51 <150 mg/dL [facility] Comment:Desirable Triglyceri de: less than 150 mg/dLBorderline High Triglyceride 150-199 mg/dLHigh Triglyceride: 200-499 mg/dLVery High Triglyceride: greater than or equal to 5OO mg/dL Cholesterol 139 <200 mg/dL [facility] Comment:Desirable Cholestero l: less than 200 mg/dLBorderline High Cholesterol: 200-239 mg/dLHigh Cholesterol: greater than 239 mg/dL LDL Cholesterol Calculated 85 <100 mg/dL [facility] Comment:Desirable LDL: less than 100 mg/dLNear Optimal/Above Optimal LDL: 110- 129 mg/dLBorderline High LDL: 130-159 mg/dLHigh LDL: 160-189 mg/dLVery High LDL: greater than or equal to 190 mg/dL HDL Cholesterol 44 >40 mg/dL [facility] Comment:Desirable HDL: great er than 40 mg/dL Note: This HDL assay may give artificially low results in patients with liver disease. Blood Venous blood specimen / Unknown 08/26/2024 9:45 AM EDT 08/26/2024 2:20 PM EDT Corwin Forrester MD LAB BLOOD ORDERABL ES Final Result [facility] [address] [place] [phone] * (ABNORMAL) Comprehensive Metabolic Panel (08/26/2024 9:45 AM EDT) Sodium 135 135 - 145 mmol/L [facility] Potassium 4.1 3.3 - 5.1 mmol/L [facility] Chloride 106 96 - 108 mmol/L [facility] Carbon Dioxide 24 22 - 29 mmol/L [facility] Anion Gap 9(L) 12 - 20 [facility] Urea Nitrogen (BUN) 14 9 - 16 mg/dL [facility] Creatinine, Serum 0.54 0.5 - 1.4 mg/dL [facility] Estimated Glomerular Filt Rate >60 [facility] Comment:Chronic Kidney Disea se: Estimated GFR < 60 mL/min/1.88f2Vpqppa Kidney Disease: Estimated GFR < 15 mL/min/1.73m2 Glucose 84 60 - 115 mg/dL [facility] Calcium 9.5 8.4 - 10.2 mg/dL [facility] Bilirubin, Total 0.3 0.0 - 1.0 mg/dL [facility] Aspartate Amino Transferase 22 5 - 31 U/L [facility] Alanine Aminotransferase 14 0 - 31 U/L [facility] Total Protein 7.2 6.5 - 8.0 g/dL [facility] Albumin Level 4.0 3.5 - 5.0 g/dL [facility] Alkaline Phosphatase 62 39 - 117 U/L [facility] Blood Venous blood specimen / Unknown 08/26/2024 9:45 AM EDT 08/26/2024 2:20 PM EDT us Corwin Forrester MD LAB BLOOD ORDERABL ES Final Result [facility] [address] [place] [phone] * BI US Breast Complete Right (07/28/2024) Anatomical Region Laterality Modality Breast Right Ultrasound us Abimbola Lawrence MD IMG US PROCEDURES Final Resul t * T-SPOT??.TB (07/21/2024 11:18 AM EDT) T Spot TB Negative Negative [facility] Comment:A negative test resu lt [...] as aquantitative test. TS PANEL A 0 [facility] TS PANEL B 1 [facility] Negative Control Passed [facility] Positive Control Passed [facility] Comment:For additional infor mation, please refer tohttp://education.Tech urSelf/faq/VFZ697(This link is being provided for informational/educational purposes only.)REPORT COMMENT:RECD IN CHANTILLYTHIS TEST WAS PERFORMED AT:[employer] [id number] [place] [address]RAKNHSAMADISON JENKINS MD,PHD 07/21/2024 11:1 8 AM EDT 07/21/2024 2:28 PM EDT us Abimbola Lawrence MD LAB BLOOD ORDERABLES Final Re sult [facility] [address] [place] [phone] * (ABNORMAL) HPV High Risk with Reflex to Subtypes (07/21/2024 11:12 AM EDT) HPV High Risk Positive(A) Negative [facility] HPV Genotype 16 Negative Negative [facility] HPV Genotype 18 Negative Negative [facility] Comment:HPV testing performe d at [facility] (CLIA#[id number]), [address] [place] [address].Testing for HPV was performed using the Konstantin SABI 6800system. The presence of HPV in the female [...] MD LAB BLOOD ORDERABLES Final Re sult [facility] [address] [place] [phone] * Pap Smear (07/21/2024 11:12 AM EDT) Swab 07/21/2024 11:1 2 AM EDT 07/22/2024 6:00 AM EDT Narrative [facility] - 07/28/2024 8:21 PM EDT ----- ------- Name: Demota-Martinez,Lian M ? Age/Sex: 38/F ? : 1985 Unit#: [id number] ?? Attend Dr: Abimbola Lawrence MD ?Re07/21/24 ?Status: DEP REF ? Location: [facility] ? Disch: ? ----- ------- SPEC : [id number] ? RECD: 07/22/24 ? STATUS: ??SOUT ? REQ NUM: [id number] ? APOLLO: 07/21/24-1111 ? SUBM DR: Abimbola Lawrence MD ? [...] ----- ------- Signed (signature on file) Dipti [place] 07/28/242020 ? ----- ------- ? END OF REPORT ? us Abimbola Lawrence MD LAB CYTOLOGY ORDERABLES Final Result [facility] [address] [place] [phone] from Last 3 Months Insurance #1 [place] [address] GENERIC COMMERCIAL MD BUBBA [id number] Care Teams Design Verification Engineer Relationship Specialty Start Date End Date Corwin Blank MD [address] [place] [phone] PCP - General Internal Medicine 07/01/24
[2024-08-27 14:17] LABS: Hematocrit 26.6 % (37.0-47.0); Hemoglobin 7.3 g/dl (12.0-16.0)
[2024-08-27 15:05] LABS: Folate 10.6 ng/mL (> or = 4.0); Vitamin B12 465 pg/mL (200-900)
[2024-08-27 15:36] LABS: Percent Iron Saturation 68 % (15-50)
[2024-08-28 11:27] LABS: Bilirubin Direct < 0.2 mg/dL (0.0-0.5); Bilirubin Total 0.2 mg/dL (0.0-1.0); Lactate Dehydrogenase 293 U/L (122-220)
[2024-08-28 11:32] LABS: Haptoglobin 99 mg/dL (35-250)
[2024-08-28 13:54] LABS: Hematocrit 27.8 % (35.0-45.0); Hemoglobin 7.5 g/dL (11.7-15.5); MCH 16.6 pg (27.0-33.0); MCV 61.5 fL (80.0-100.0); RBC 4.52 Million/uL (3.80-5.10); RDW 20.1 % (11.0-15.0)
[2024-09-02 10:47] LABS: Iron 263 mcg/dL (30-160)
[2024-09-02 10:48] LABS: Total Iron Binding Capacity 385 mcg/dL (228-428); Unsaturated Iron Binding 122 ug/dL
== END 2024-08-27 08:43 | disposition home or self-care (01) ==
LOC: HO.CHCLDS 08:42
PROVIDERS: Visit Provider Internal Medicine
DX: D64.9 Anemia, unspecified (principal)
CPT/HCPCS: 36415; 82247; 82248; 82607; 82746; 83010; 83020; 83540; 83615; 85014; 85018; 85041

== ENCOUNTER → 2024-09-02 08:47 | Outpatient (BNV) | payer OTHER, SELFPAY | PROVIDERS: PCP Internal Medicine; Referring Provider Internal Medicine; Visit Provider Nurse Practitioner Family | DX: D64.9 Anemia, unspecified (principal) | CPT/HCPCS: 99204 ==

== ENCOUNTER 2024-10-14 08:30 | Outpatient (RCR) | payer OTHER, SELFPAY ==
[2024-09-23 09:04] VITALS: BP 113/78; PULSE 68; RESP 18; TEMP 36.6
[2024-09-30 08:53] VITALS: BP 126/76; PULSE 66; RESP 16; TEMP 36.6; O2SAT 96
[2024-10-07 09:05] VITALS: BP 139/84; PULSE 65; RESP 16; TEMP 36.6; O2SAT 99
[2024-10-14 08:30] VITALS: BP 130/82; PULSE 67; RESP 16; TEMP 36.6; O2SAT 98
[2024-10-14 09:00] LABS: Hematocrit 35.7 % (37.0-47.0); Hemoglobin 10.8 g/dl (12.0-16.0); Mean Corpuscular HGB Conc 30.3 g/dl (31.0-35.0); Mean Corpuscular Hemoglobin 20.8 pg (27.0-33.0); Mean Corpuscular Volume 68.9 fL (80.0-98.0); NRBC Abs Auto 0.000 X10*3/uL (0.0-0.012); NRBC Pct Auto 0.0 /100WBC (0.0-0.2); Platelet Count 307 X10*3/uL (160-400); Red Blood Count 5.18 X10*6/uL (4.20-5.50); White Blood Count 6.0 X10*3/uL (4.8-10.8)
[2024-10-14 09:26] LABS: Ferritin 162 ng/mL (10-250)
== END 2024-10-14 09:11 | disposition home or self-care (01) ==
LOC: HO.INF 08:30
PROVIDERS: Visit Provider Nurse Practitioner Family
DX: D64.9 Anemia, unspecified (principal)
CPT/HCPCS: 36415; 82728; 85027; 96365; 96374; J1756

== ENCOUNTER → 2024-10-26 14:00 | Outpatient (REF) | payer OTHER, SELFPAY ==
--- NOTE | 2024-10-26 14:03 | CA_ITS ---
Transthoracic Echocardiogram Patient (Last, First, Middle): Lian Soto M Gender: Female Date of : 1985 Age: 38 Procedure Date: 10/26/2024 Procedure Type: Transthoracic Echocardiogram Location: OP Height: 162.56 cm Weight: 77.11 kg BSA: 1.83 m2 Heart Rate: bpm BP: 144 / 80 mmHg Outreach Worker: HANSEL Referring MD: Awa Prado NP Symptoms: Newly recognized heart murmur, orthopnea x 4 weeks Study Quality: Adequate ECG Rhythm: Sinus Conclusions: - The left ventricular systolic function is normal. The calculated ejection fraction is 62% by biplane method. - No obvious valvular pathology seen on this study. Findings Left Ventricle Normal left ventricular cavity size. There is normal left ventricular wall thickness. The left ventricular systolic function is normal. The calculated ejection fraction is 62% by biplane method. There is no evidence of regional wall motion abnormalities. Diastolic function is normal for age. Right Ventricle Normal right ventricular cavity size and systolic function. Atria The left atrium is mildly dilated. The right atrium is normal in size. Aortic Valve There is a normal trileaflet aortic valve. There is no aortic valve stenosis. There is no aortic valve regurgitation. Mitral Valve The mitral valve appears normal. There is no mitral valve regurgitation. There is no mitral valve stenosis. Pulmonic Valve The pulmonic valve is likely normal. Tricuspid Valve There is trace tricuspid valve regurgitation. There is no evidence of pulmonary hypertension. Great Vessels The asc aorta and aortic arch are normal in size. Venous The inferior vena cava is normal in size and collapses greater than 50% with inspiration. Pericardium/Pleural There is no evidence of pericardial effusion. Prior Study Comparison No prior study available for comparison. Recommendations, Care & Conclusions No obvious valvular pathology seen on this study. Measurements 2D Linear Measurements IVSd: 1.09 0.6-0.9/0.6-1.0 cm LVIDd: 4.17 3.9-5.3/4.2-5.9 cm LVIDd Index: 2.28 2.4-3.2/2.2-3.1 cm/m2 LVIDs: 2.84 2.0-3.6 cm LVPWd: 1.09 0.7-1.1 cm LA Diam: 3.80 2.7-3.8/3.0-4.0 cm LAIDs Index: 2.08 1.5-2.3 cm/m2 LV Mass: 190.88 67-162/88-224 g LV Mass Index: 104.30 43-95/49-115 g/m2 LVOT Diam: 2.00 3.0+(-)1.3 cm 2D Systolic Function EF 4C: 65.50 >55% EF 2C: 61.50 >55% EF BiP: 61.90 >55% Mitral Valve MV Pk E: 1.30 MV PK A: 0.99 MV Decel Time: 217.00 E/A: 1.30 E'Lateral: 10.60 E'Medial: 8.05 E/E' Med: 16.10 E/E' Lat: 12.30 PHT: 64.00 MVA PHT: 3.44 Decel Hawkins: 6.00 Aortic Valve AoV Pk Amanuel: 1.91 AoV Mn Amanuel: 1.32 AoV VTI: 0.45 AoV Pk Grad: 15.00 Aov Mn Grad: 8.00 DARRICK Cont.VTI: 1.96 LVOT LVOT Pk Amanuel: 1.40 LVOT Mn Amanuel: 0.94 LVOT VTI: 0.28 LVOT Pk Grad: 8.00 LVOT Mn Grad: 4.00 LVOT Diam: 2.00 LVOT Area: 3.14 Diastolic Function MV Pk E: 1.30 MV Pk A: 0.99 E/A: 1.30 E'Medial: 8.05 E/E' Med: 16.10 E' Laterial: 10.60 E/E' Lat: 12.30 Right Ventricle TAPSE (mm): 2.39 TVS' Amanuel: 14.10 Tricuspid Valve TR Pk Amanuel: 2.01 TR Pk Grad: 16.00 RA Press: 3.00 RVSP: 19.00 Great Vessels Aorta Sinus of Valsalva: 2.62 2.0-3.[address] Ridge: 2.19 1.7-3.4 cm Ao Asc: 3.00 2.1-3.4 cm Ao Arch: 2.70 Updated in Other Vendor System with Status of Final Kenney Wynn MD electronically signed on 10/27/2024 11:57:51 AM with status of Final
--- OUTSIDE RECORDS SUMMARY | 2024-10-26 14:28 | XMS_ITS | Clinical Summary ---
Author Organization [facility] Address [address] [address] Phone Care Team Providers Care Resident Services Manager Name Role Phone Pcp, Unknown Primary Care Provider Unavailabl e Allergies No known active allergies Medications No known medications Social History Tobacco Use Types Packs/Day Years Used Date Smoking Tobacco: Never Assessed Education Answer Date Recorded Are you interested in more education? Not on mohini e 02/09/2023 Are you concerned about learning? Not on file 02/09/2023 No 02/09/2023 No 02/09/2023 Digital Access Answer Date Recorded No 02/09/2023 No 02/09/2023 Reliable internet access at home? Not on file 02/09/2023 Device with a working camera? Not on file Intimate Partner Violence Answer Date R ecorded Are you denied basic needs s uch as food, clothing, or medical care? No 02/09/2023 In the past 12 months have y ou been in a relationship with a person who hurts, threatens, or tries to control you? No 02/09/2023 Are you denied basic needs s uch as food, clothing, or medical care? No 02/09/2023 In the past 12 months have y ou been in a relationship with a person who hurts, threatens, or tries to control you? No 02/09/2023 Comments Unknown Sex and Gender Information Value Date Recorded Sex Assigned at Not on file Legal Sex Female 12:27 PM EST Gender Identity Not on file Sexual Orientation Not on file Last Filed Vital Signs Vital Sign Reading Time Taken Comments Blood Pressure 132/74 02/09/2023 2:51 PM EST Pulse 82 02/09/2023 2:51 PM EST Temperature 36.6 C (97.8 F) 02/09/2023 2:51 PM EST Respiratory Rate 18 02/09/2023 2:51 PM EST Oxygen Saturation 100% 02/09/2023 2:51 PM EST Inhaled Oxygen Concentration - - Weight 77.1 kg (170 lb) 02/09/2023 12:45 PM EST Height 165.1 cm (5' 5 ) 02/09/2023 12:45 PM EST Body Mass Index 28.29 02/09/2023 12:45 PM EST Plan of Treatment Not on file Medical Devices Not on file Care Teams Resident Services Manager Relationship Specialty Start Date End Date Pcp, Unknown PCP - General 02/09/23 Additional Source Comments The information contained in this document represents components of the legal health record. It is not the complete legal health record.[facility]
--- OUTSIDE RECORDS SUMMARY | 2024-10-26 14:28 | XMS_ITS | Clinical Summary ---
Author Organization [employer] Address [address] [place] [address] Care Team Providers Care Manager Spa Name Role Phone Corwin Blank MD Primary Care Prov ider Allergies No known active allergies Medications triamcinolone (Kenalog) 0.1 % cream Apply topically if needed in the morning and at bedtime (pain and swelling). 30 g 5 5 Active cyclobenzaprine (Flexeril) 10 MG tablet Take 1 tablet (10 mg) by mouth 3 times daily for 10 days. 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 History of tubal ligation 07/21/2024 Overview [...] visit >10yrs ER: chest/back pain March 2024 [facility] Hospitalization: - Pmhx: asthma Pshx: gallbladder 2018, [facility] 2014 All:- Meds: - A0 LMP: 05/25/24 Menarche: 11yrs Pap smear: >10yrs Encounter for screening mamm ogram for malignant neoplasm of breast 05/25/2024 Encounters Date Type Department Care Team Description 08/28/2024 Telephone [facility] [address] [place] [address] Corwin Blank MD 08/28/2024 Telephone [facility] [address] [place] [address] Corwin Blank MD Medication Question 08/26/2024 9:00 AM EDT Office Visit [facility] [address] [place] [address] Corwin Blank MD Obesity (BMI 30.0-34.9) (Primary Dx); Dietary counseling; Exercise counseling; ASCUS with positive high risk HPV cervical 08/26/2024 Telephone [facility] [address] [place] [address] Corwin Blank MD Results; Lab Orders 08/26/2024 Orders Only [facility] [address] [place] [address] Corwin Blank MD Anemia, unspecified type (Primary Dx) 08/26/2024 Travel 08/17/2024 Patient Outreach [facility] [address] [place], [place] [phone] Corwin Blank MD Pre-visit Planning (SDOH screening completed on 05/25/24) 08/06/2024 Telephone [facility] [address] [place] [address] Corwin Blank MD Call Back Request 08/05/2024 Telephone [facility]EDS [address] [place] [address] Abimbola Lawrence MD 07/29/2024 Results Follow-Up [facility] [address] [place] [address] Abimbola Lawrence MD BI US Breast Complete Right from Last 3 Months Immunizations Immunization Administration [...] 82 08/26/2024 9:04 AM EDT Temperature 36.6 C (97.8 F) 08/26/2024 9:04 AM EDT Respiratory Rate 20 08/26/2024 9:04 AM EDT Oxygen Saturation 98% 07/21/2024 10:48 AM EDT Inhaled Oxygen Concentration - - Weight 78.9 kg (174 lb) 08/26/2024 9:04 AM EDT Height 160 cm (5' 3 ) 08/26/2024 9:04 AM EDT Body Mass Index 30.82 08/26/2024 9:04 AM EDT Plan of Treatment Health Maintenance Due Date Last Done Comments Disability Screening 1985 Family Planning (PISQ) 11/07/1998 HPV Vaccines (1 - 3-dose series) 11/07/1998 COVID-19 Vaccine ( season) 2023 Influenza Vaccine (#1) 2024 02/20/2018, 2013 Alcohol/Substance Use Screening 05/25/2025 05/25/2024 Depression Screening 05/25/2025 05/25/2024, 05/26/19 SDOH Screening 05/25/2025 05/25/2024 Tobacco Screening 07/21/2025 [...] Hepatitis B Vaccines Completed 07/02/2007, 11/19/2006, 06/26/2006 HIV Screening Completed 08/26/2024 Hepatitis C Screening Completed 08/26/2024 HIB Vaccines Aged Out No longer eligi [...] Years) and At-Risk Patients (6 to 49) Years Aged Out No longer eligible based on patient's age to complete this topic RSV under 20 months Aged Out No longe r eligible based on patient's age to complete this topic Rotavirus Vaccines Aged Out No longer eligible based on patient's age to complete this topic Procedures Procedure Name Priority Date/Time Associated Diagnosis Comments BILIRUBIN, DIRECT Routine 08/27/2024 12: 00 AM EDT Anemia, unspecified type BILIRUBIN, TOTAL Routine 08/27/2024 12:0 0 AM EDT Anemia, unspecified type HAPTOGLOBIN Routine 08/27/2024 12:00 AM EDT Anemia, unspecified type LD Routine 08/27/2024 12:00 AM EDT Anemia, unspecified type HEMOGLOBIN ELECTROPHORESIS Routine 08/27/2024 12:00 AM EDT Anemia, unspecified type VITAMIN B12/FOLATE, SERUM PANEL Routine 08/27/2024 12:00 AM EDT Anemia, unspecified type IRON AND TOTAL IRON BINDING CAPACITY Routine 08/27/2024 12:00 AM EDT Anemia, unspecified type HEMOGLOBIN + HEMATOCRIT Routine 08/28/19 25 12:00 AM EDT Anemia, unspecified type PATHOLOGIST REVIEW - CBC Routine 08/26/2024 9:45 AM EDT Anemia, unspecified type HEPATITIS C AB W/REFL TO HCV RNA, [...] of upper inner quadrant of right breast HPV DNA, LOW/HIGH RISK Routine 05/06/202 5 11:12 AM EDT Cervical cancer screening PAP SMEAR Routine 07/21/2024 11:12 AM EDT Cervical cancer screening from Last 3 Months or Most Recently Relevant to Health Maintenance Results * Vitamin B12 (Cobalamin) and Folate Panel, Serum (08/27/2024 12:00 AM EDT) Vitamin B12 465 200 - 900 pg/mL [facility] Comment:NORMAL 200-900 PG/ML INDETERMINATE 160-199 PG/ML DEFICIENT < 160 PG/ML Folate 10.6 > or = 4.0 ng/mL [facility] Comment:Reference Values:> o r = 4.0 ng/mL< 4.0 ng/mL suggests folate deficiency Methotrexate, aminopterin and folinic acid(leucovorin) are chemotherapeutic agents whose molecularstructures are similar to folate; therefore, the Architectfolate assay cannot be used for patients using these drugs. Blood Venous blood specimen / Unknown 08/27/2024 08/27/2024 us Corwin Forrester MD LAB BLOOD ORDERABL ES Final Result [facility] [address] [place] [phone] * (ABNORMAL) Hemoglobin Electrophoresis (08/27/2024 12:00 AM EDT) RBC 4.52 3.80 - 5.10 Million/u L [facility] Hemoglobin 7.5(A) 11.7 - 15.5 g/dL [facility] Hematocrit 27.8(A) 35.0 - 45.0 % [facility] MCV 61.5(A) 80.0 - 100.0 fL [facility] MCH 16.6(A) 27.0 - 33.0 pg [facility] RDW 20.1(A) 11.0 - 15.0 % [facility] Hemoglobin A 98.3 >96.0 % [facility] Hemoglobin A2 1.7(A) 2.0 - 3.2 % [facility] Hemoglobin F <1.0 <2.0 % [facility] Hemoglobin S TNP [facility] Hemoglobin C TNP [facility] Hemoglobin E TNP [facility] Other Hemoglobin TNP [facility] Other Hemoglobin 2 TNP [facility] Hgb Interpretation SEE NOTE [facility] Comment:Decreased hemoglobin A2 noted. Reduced hemoglobin A2 is a relativelycommon acquired disorder. It is commonly decreased in iron deficiencyanemia and lead poisoning. It may also be decreased in alphathalassemia. If iron deficiency anemia and lead poisoning have beenruled out, testing for alpha thalassemia common mutation is available([email or web address] Test Code 28205).THIS TEST WAS PERFORMED AT:[employer] [place] [phone] JO ARCE MD Blood Venous blood specimen / Unknown 08/27/2024 08/27/2024 Corwin Forrester MD LAB BLOOD ORDERABL ES Final Result Performing Organization Address [facility]/ZIP Co de Phone Number [facility] [address] [place] [phone] * (ABNORMAL) Iron And Total Iron Binding Capacity (08/27/2024 12:00 AM EDT) Iron 263(H) 30 - 160 mcg/dL [facility] Comment:Questionable result. Recollection has been suggested. Total Iron Binding Capacity 385 228 - 428 mcg/dL [facility] Comment:Questionable result. Recollection has been suggested. Percent Iron Saturation 68(H) 15 - 50 % [facility] Unsaturated Iron Binding 122 ug/dL [facility] Comment:Questionable result. Recollection has been suggested. Blood Venous blood specimen / Unknown 08/27/2024 08/27/2024 Corwin Forrester MD LAB BLOOD ORDERABL ES Edited Result - Final [facility] [address] [place] [phone] * (ABNORMAL) Hemoglobin and Hematocrit (08/27/2024 12:00 AM EDT) Hemoglobin 7.3(L) 12.0 - 16.0 g/dl [facility] Hematocrit 26.6(L) 37.0 - 47.0 % [facility] Blood Venous blood specimen / Unknown 08/27/2024 08/27/2024 Corwin Forrester MD LAB BLOOD ORDERABL ES Final Result Performing Organization Address [facility] Co de Phone Number [facility] [address] [place] [phone] * (ABNORMAL) Lactate Dehydrogenase (LD) (08/27/2024 12:00 AM EDT) Lactate Dehydrogenase 293(H) 122 - 220 U/L [facility] Blood Venous blood specimen / Unknown 08/27/2024 08/27/2024 Corwin Forrester MD LAB BLOOD ORDERABL ES Final Result Performing Organization Address [facility] Co de Phone Number [facility] [address] [place] [phone] * Haptoglobin (08/27/2024 12:00 AM EDT) Haptoglobin 99 35 - 250 mg/dL [facility] Blood Venous blood specimen / Unknown 08/27/2024 08/27/2024 Corwin Forrester MD LAB BLOOD ORDERABL ES Final Result Performing Organization Address [facility] Co de Phone Number [facility] [address] [place] [phone] * Bilirubin, Direct (08/27/2024 12:00 AM EDT) Bilirubin, Direct <0.2 0.0 - 0.5 mg/dL [facility] 08/27/2024 08/27/2024 Corwin Forrester MD LAB BLOOD ORDERABL ES Final Result Performing Organization Address [facility]/ZIP Co de Phone Number [facility] [address] [place] [phone] * Bilirubin, Total (08/27/2024 12:00 AM EDT) Bilirubin, Total 0.2 0.0 - 1.0 mg/dL [facility] 08/27/2024 08/27/2024 Corwin Forrester MD LAB BLOOD ORDERABL ES Final Result Performing Organization Address [facility] Co de Phone Number [facility] [address] [place] [phone] * Pathologist Review - CBC (08/26/2024 9:45 AM EDT) Pathologist Review - CBC SEE NOTE [facility] Comment:Variably hypochromic microcytic anemia; scatteredelliptocytes and targets are present. Please correlate withiron studies. If iron studies are normal, considerthalassemia workup.- Keanu Fleming M.D. Pathology 08/26/2024 9:45 AM EDT 08/26/2024 2:20 PM EDT Corwin Forrester MD LAB BLOOD ORDERABL ES Final Result Performing Organization Address [facility] Co de Phone Number [facility] [address] [place] [phone] * TSH W/Reflex to FT4 (08/26/2024 9:45 AM EDT) Pathologist [facility] TSH reflex Free T4 1.14 0.32 - 4.0 uIU/mL [facility] Blood Venous blood specimen / Unknown 08/26/2024 9:45 AM EDT 08/26/2024 2:20 PM EDT Corwin Forrester MD LAB BLOOD ORDERABL ES Final Result [facility] [address] [place] [phone] * (ABNORMAL) CBC auto differential (08/26/2024 9:45 AM EDT) [facility] White Blood Count 5.8 4.8 - 10.8 X10*3/uL [facility] Red Blood Count 4.71 4.20 - 5.50 X10*6/uL [facility] Hemoglobin 7.6(L) 12.0 - 16.0 g/dl [facility] Hematocrit 27.9(L) 37.0 - 47.0 % [facility] Mean Corpuscular Volume 59.2(L) 80.0 - 98.0 fL [facility] Mean Corpuscular Hemoglobin 16.1(L) 27.0 - 33.0 pg [facility] Mean Corpuscular HGB Conc 27.2(L) 31.0 - 35.0 g/dl [facility] Red Cell Distribution Width 21.7(H) 11.0 - 16.0 % [facility] Platelet Count 412(H) 160 - 400 X10*3/uL [facility] Mean Platelet Volume 9.9 9.4 - 12.3 fL [facility] Neutrophils Percent Auto 51.5 45 - 73 % [facility] Imm Gran Pct Auto 0.3 0.0 - 0.4 % [facility] Lymphocytes Percent Auto 37.6 20 - 40 % [facility] Monocytes Percent Auto 8.0 2 - 11 % [facility] Eosinophils Percent Auto 1.7 0 - 4 % [facility] Basophils Percent Auto 0.9 0 - 2 % [facility] NRBC Pct Auto 0.0 0.0 - 0.2 /100WBC [facility] Neutrophils Absolute Auto 3.0 2.0 - 8.3 x10*3/uL [facility] Imm Gran Abs Auto 0.02 0.00 - 0.03 X10*3/uL [facility] Lymphocytes Absolute Auto 2.2 1.2 - 4.9 X10*3/uL [facility] Monocytes Absolute Auto 0.5 0.1 - 1.2 X10*3/uL [facility] Eosinophils Absolute Auto 0.1 0.0 - 0.4 X10*3/uL [facility] Basophils Absolute Auto 0.1 0.0 - 0.2 X10*3/uL [facility] NRBC Abs Auto 0.000 0.0 - 0.012 X10*3/uL [facility] Blood Venous blood specimen / Unknown 08/26/2024 9:45 AM EDT 08/26/2024 2:20 PM EDT Corwin Forrester MD LAB BLOOD ORDERABL ES Final Result Performing Organization Address [facility]/ZIP Co de Phone Number [facility] [address] [place] [address] [phone] * Hepatitis C Antibody with Reflex to HCV, RNA, Quantitative, Real-Time PCR (08/26/2024 9:45 AM EDT) Hepatitis C Antibody Nonreactive Nonreactive [facility] Comment:Antibodies to HCV no t detected; does not exclude early acuteHCV infection. Blood Venous blood specimen / Unknown 08/26/2024 9:45 AM EDT 08/26/2024 2:20 PM EDT Corwin Forrester MD LAB BLOOD ORDERABL ES Final Result Performing Organization Address City/[facility]/ZIP Co de Phone Number [facility] [address] [place] [address] [phone] * HIV-1/2 Antigen and Antibodies, Fourth Generation, with Reflexes (08/26/2024 9:45 AM EDT) HIV AB/AG Nonreactive Nonreactive [facility] Comment:HIV-1 p24 Ag and/or HIV-1/HIV-2 Ab not detected.A test result that is nonreactive does not exclude thepossibility of exposure to or infection with HIV-1 and/orHIV-2. Nonreactive results in this assay for individualswith prior exposure to HIV-1 and/or HIV-2 may be due toantigen and antibody levels that are below the limit ofdetection of this assay.The [employer] HIV Ag/Ab Combo assay result andsupplemental assay results should be interpreted inconjunction with the patient's clinical presentation,history and other laboratory results. If the results areinconsistent with clinical evidence, additional testing issuggested to confirm the result. Blood Venous blood specimen / Unknown 08/26/2024 9:45 AM EDT 08/26/2024 2:20 PM EDT us Corwin Forrester MD LAB BLOOD ORDERABL ES Final Result [facility] [address] [place] [phone] * Hemoglobin A1c (08/26/2024 9:45 AM EDT) Hemoglobin A1c 5.5 <6.0 % [facility] Comment:Hemoglobin A1C Refer ence Range Adults: 4.8 - 6.0 % Non diabetic: < 6.0 % Goal: < 7.0 %Additional Action Suggested: > 8.0 %Note: Hemoglobin A1c results are invalid for patients with abnormal amounts of HbF. Blood transfusions may impact the HbA1c concentration in the patient sample. Estimated Average Glucose 111 mg/dL [facility] Comment:eAG = Estimated ave rage glucose which is %A1C expressed asaverage glucose, using the formula of the [id number] Glucose study (ADAG), Diabetes Care, Vol.31,#8,Oct. 2007 Blood Venous blood specimen / Unknown 08/26/2024 9:45 AM EDT 08/26/2024 2:20 PM EDT Corwin Forrester MD LAB BLOOD ORDERABL ES Final Result Performing Organization Address [facility] Co de Phone Number [facility] [address] [place] [address] [phone] * Lipid Panel, Standard (08/26/2024 9:45 AM EDT) Triglycerides 51 <150 mg/dL [facility] Comment:Desirable Triglyceri de: less than 150 mg/dLBorderline High Triglyceride 150-199 mg/dLHigh Triglyceride: 200-499 mg/dLVery High Triglyceride: greater than or equal to 5OO mg/dL Cholesterol 139 <200 mg/dL [facility] Comment:Desirable Cholestero l: less than 200 mg/dLBorderline High Cholesterol: 200-239 mg/dLHigh Cholesterol: greater than 239 mg/dL LDL Cholesterol Calculated 85 <100 mg/dL [facility] Comment:Desirable LDL: less than 100 mg/dLNear Optimal/Above Optimal LDL: 110- 129 mg/dLBorderline High LDL: 130-159 mg/dLHigh LDL: 160-189 mg/dLVery High LDL: greater than or equal to 190 mg/dL HDL Cholesterol 44 >40 mg/dL [facility] Comment:Desirable HDL: great er than 40 mg/dL Note: This HDL assay may give artificially low results in patients with liver disease. Blood Venous blood specimen / Unknown 08/26/2024 9:45 AM EDT 08/26/2024 2:20 PM EDT Corwin Forrester MD LAB BLOOD ORDERABL ES Final Result Performing Organization Address [facility]/ZIP Co de Phone Number [facility] [address] [place] [address] [phone] * (ABNORMAL) Comprehensive Metabolic Panel (08/26/2024 9:45 AM EDT) Sodium 135 135 - 145 mmol/L [facility] Potassium 4.1 3.3 - 5.1 mmol/L [facility] Chloride 106 96 - 108 mmol/L [facility] Carbon Dioxide 24 22 - 29 mmol/L [facility] Anion Gap 9(L) 12 - 20 [facility] Urea Nitrogen (BUN) 14 9 - 16 mg/dL [facility] Creatinine, Serum 0.54 0.5 - 1.4 mg/dL [facility] Estimated Glomerular Filt Rate >60 [facility] Comment:Chronic Kidney Disea se: Estimated GFR < 60 mL/min/1.64z6Nvampy Kidney Disease: Estimated GFR < 15 mL/min/1.73m2 Glucose 84 60 - 115 mg/dL [facility] Calcium 9.5 8.4 - 10.2 mg/dL [facility] Bilirubin, Total 0.3 0.0 - 1.0 mg/dL [facility] Aspartate Amino Transferase 22 5 - 31 U/L [facility] Alanine Aminotransferase 14 0 - 31 U/L [facility] Total Protein 7.2 6.5 - 8.0 g/dL [facility] Albumin Level 4.0 3.5 - 5.0 g/dL [facility] Alkaline Phosphatase 62 39 - 117 U/L [facility] Blood Venous blood specimen / Unknown 08/26/2024 9:45 AM EDT 08/26/2024 2:20 PM EDT us Corwin Forrester MD LAB BLOOD ORDERABL ES Final Result [facility] [address] [place] [phone] * BI US Breast Complete Right (07/28/2024) Anatomical Region Laterality Modality Breast Right Ultrasound us Abimbola Lawrence MD IMG US PROCEDURES Final Resul t * (ABNORMAL) HPV High Risk with Reflex to Subtypes (07/21/2024 11:12 AM EDT) HPV High Risk Positive(A) Negative [facility] HPV Genotype 16 Negative Negative [facility] HPV Genotype 18 Negative Negative [facility] Comment:HPV testing performe d at [facility] (CLIA#[id number]), [address] [place] [address].Testing for HPV was performed using the Konstantin [...] MD LAB BLOOD ORDERABLES Final Re sult [facility] [address] [place] [address] [phone] * Pap Smear (07/21/2024 11:12 AM EDT) Swab 07/21/2024 11:1 2 AM EDT 07/22/2024 6:00 AM EDT Narrative [facility] - 07/28/2024 8:21 PM EDT ----- ------- Name: Lian Soto Age/Sex: 38/F : 1985 Unit#: [id number] Attend Dr: Abimbola Lawrence MD Re07/21/24 Status: DEP REF Location: HO.CHCLDS Disch: ----- ------- SPEC : [id number] RECD: 07/22/24 STATUS: [place]OOK DOAN NUM: [id number] APOLLO: 07/21/24-[address] [facility] [address]: Abimbola Lawrence MD ENTERED: 07/22/24 SP TYPE: Pap Smr OTHR DR: ORDERED: Pap Smear, PAP path review Interpretation General Category: Epithelial cell abnormality. Adequacy: Endocervical component absent. Interpretation: Atypical squamous cells of undetermined significance. HPV High Risk: Positive HPV Genotyping 16: Negative HPV Genotyping 18: Negative Clinical Information LMP:07/03/24 Previous PAP test:Unknown date/findings Material Received ThinPrep-Cervical ----- ------- Signed (signature on file) Dipti Tubbs 07/28/242020 ----- ------- END OF REPORT us Abimbola Lawrence MD LAB CYTOLOGY ORDERABLES Final Result [facility] [address] [place] [phone] from Last 3 Months or Most Recently Relevant to Health Maintenance Insurance [employer] [place] [id number] Care Teams Manager Spa Relationship Specialty Start Date End Date Corwin Blank MD [address] [place] [phone] PCP - General Internal Medicine 07/01/24
--- OUTSIDE RECORDS SUMMARY | 2024-10-26 14:28 | XMS_ITS | Clinical Summary ---
Author Organization [facility] Address [address] [place] [address] Phone Care Team Providers Care Pediatric Care Coordinator Name Role Phone Corwin Blank Primary Care Provide r Encounters Date Type Department Care Team Description 07/28/2024 8:36 AM EDT - 07/28/2024 11:59 PM EDT Hospital Encounter [facility] Ultrasound [address] [place] [phone] Mass of upper inner quadrant of right breast Discharge Disposition: Home or Self Care 07/28/2024 7:49 AM EDT - 07/28/2024 11:59 PM EDT [facility] [address] [phone] Mass of upper inner quadrant of right breast Discharge Disposition: Home or Self Care from [...] - Inhaled Oxygen Concentration - - Weight 79.4 kg (175 lb) 07/28/2024 7:58 AM EDT Height 162.6 cm (5' 4 ) 07/28/2024 7:58 AM EDT Body Mass Index 30.04 07/28/2024 7:58 AM EDT Plan of Treatment Health Maintenance Due Date Last Done Comments Cervical Cancer Screening: P ap Smear 11/07/2004 HIV Screening 04/16/2023 Hepatitis C Screening 04/16/2023 Social Influencers of Health Screening 04/16/2023 COVID-19 Vaccine (1 - 2023-2 5 season) 2023 Depression Screening 03/18/2024 Influenza Vaccine (#1) 2024 8, 12/08/2013 Breast Cancer Screening 07/28/2026 07/29/19 25, 06/17/2024 DTaP,Tdap,and Td Vaccines (4 - Td or Tdap) 07/21/2034 07/21/2024, 12/22/2013, 04/25/2010 Hepatitis B Vaccines Completed 07/02/2007, 11/19/2006, 06/26/2006 [...] 5 Years) and At-Risk Patients (6 to 49 Years) Aged Out No longer eligible b ased on patient's age to complete this topic RSV Immunization Patients Under 20 months Aged Out No longer eligible b ased on patient's age to complete this topic Varicella Vaccines Aged Out No longer eligible based on patient's age to complete this topic Procedures Procedure Name Priority Date/Time Associated Diagnosis Comments US BREAST COMPLETE RIGHT Routine 07/28/2024 9:23 AM EDT Mass of upper inner quadrant of right breast MG MAMMO DIGITAL DIAGNOSTIC W DEIDRE RIGHT Routine 07/28/2024 9:22 AM EDT Mass of upper inner quadrant of right breast from Last 3 Months Results * US Breast Complete Right (07/28/2024 9:23 AM EDT) Anatomical Region Laterality Modality Breast Right Ultrasound 07/28/2024 9:19 AM EDT Impressions 07/28/2024 9:21 AM EDT No mass or other abnormality is seen at the area of clinical concern in the right breast 3:00 position 9 cm from the nipple. BIRADS Code Class 1: Negative PQRI CPT II 3341F Code 05137 -------- FINAL REPORT -------- Dictated By: Rajinder Bo Dictated Date: 07/28/2024 09:19 ET Assigned Physician: Rajinder Bo Reviewed and Electronically Signed By: Rajinder Bo Signed Date: 07/28/2024 09:21 ET Workstation ID: [id number] Transcribed By: Self Edit Transcribed Date: 07/28/2024 09:19 ET Narrative 07/28/2024 9:21 AM EDT HISTORY: The patient is a 38-year-old female with a small palpable lump laterally in the right breast. Mammography performed immediately prior to this study demonstrated no abnormality. Further evaluation ultrasound is now performed. FINDINGS: Focused real-time ultrasonography of the area of clinical concern at 3:00 position of the right breast 9 cm from the nipple is performed. The study demonstrates no cystic or solid mass, architectural distortion, or other abnormality. Procedure Note Rajinder Bo MD - 07/28/2024 HISTORY: The patient is a 38-year-old female with a small palpable lumplaterally in the right breast. Mammography performed immediately prior tothis study demonstrated no abnormality. Further evaluation ultrasound isnow performed. FINDINGS: Focused real-time ultrasonography of the area of clinicalconcern at 3:00 position of the right breast 9 cm from the nipple isperformed. The study demonstrates no cystic or solid mass, architecturaldistortion, or other abnormality. IMPRESSION: No mass or other abnormality is seen at the area of clinical concern inthe right breast 3:00 position 9 cm from the nipple. BIRADS Code Class 1: Negative PQRI CPT II 3341F Code 10351 -------- FINAL REPORT -------- Dictated By: Rajinder Bo Dictated Date: 07/28/2024 09:19 ET Assigned Physician: Rajinder Bo Reviewed and Electronically Signed By: Rajinder Bo Signed Date: 07/28/2024 09:21 ET Workstation ID: [id number] Transcribed By: Self Edit Transcribed Date: 07/28/2024 09:19 ET us Abimbola Lawrence MD IMG US PROCEDURES Final Resul t * MG Mammo Digital Diagnostic w Deidre Right (07/28/2024 9:22 AM EDT) Anatomical Region Laterality Modality Breast Right Mammography 07/28/2024 8:25 AM EDT Impressions 07/28/2024 9:23 AM EDT No mammographic evidence of malignancy in the right breast. Ultrasound examination of the area of clinical concern at the 3:00 position 9 cm from the nipple demonstrates no mass or other abnormality. BI-RADS CATEGORY: 1 - NEGATIVE RECOMMENDATION: Screening bilateral mammogram is recommended in 1 year. Mammo Location: [facility], [facility], [address] [place] [address] -------- FINAL REPORT -------- Dictated By: Rajinder Bo Dictated Date: 07/28/2024 08:25 ET Assigned Physician: Rajinder Bo Reviewed and Electronically Signed By: Rajinder Bo Signed Date: 07/28/2024 09:23 ET Workstation ID: [id number] Transcribed By: Self Edit Transcribed Date: 07/28/2024 08:31 ET Narrative 07/28/2024 9:23 AM EDT CLINICAL: The patient is a 38 years Female with a small palpable lump medially in the right breast. Baseline screening mammography recently performed on 06/17/2024 demonstrated no abnormality. COMPARISON: 06/17/2024 TECHNIQUE: Full-field digital mammography of the right breast consisting of tomosynthesis in MLO and CC projection is performed in the [employer] 2000-D unit. Computer aided detection utilizing the iCAD system was utilized. FINDINGS: The right breast is again seen to be composed of a combination of fatty and fibroglandular elements. There is no cluster of microcalcifications, mass, or area of architectural distortion. There is no skin thickening or nipple retraction. Particular attention is directed to the area of clinical concern at the 3:00 position approximately 9 cm from the nipple; no abnormality is seen here. Focused real-time ultrasonography of the area of clinical concern at the 3:00 position of the right breast 9 cm from the nipple is performed. The study demonstrates no cystic or solid mass, architectural distortion, or other abnormality. TISSUE DENSITY: There are scattered areas of fibroglandular density. (BI-RADS category B) Procedure Note Rajinder Bo MD - 07/28/2024 CLINICAL: The patient is a 38 years Female with a small palpable lumpmedially in the right breast. Baseline screening mammography recentlyperformed on 06/17/2024 demonstrated no abnormality. COMPARISON: 06/17/2024 TECHNIQUE: Full-field digital mammography of the right breast consistingof tomosynthesis in MLO and CC projection is performed in the [employer] 2000-D unit. Computer aided detection utilizing the [employer]CADsystem was utilized. FINDINGS: The right breast is again seen to be composed of a combinationof fatty and fibroglandular elements. There is no cluster ofmicrocalcifications, mass, or area of architectural distortion. There isno skin thickening or nipple retraction. Particular attention is directedto the area of clinical concern at the 3:00 position approximately 9 cmfrom the nipple; no abnormality is seen here. Focused real-time ultrasonography of the area of clinical concern at the3:00 position of the right breast 9 cm from the nipple is performed. Thestudy demonstrates no cystic or solid mass, architectural distortion, orother abnormality. TISSUE DENSITY: There are scattered areas of fibroglandular density.(BI-RADS category B) IMPRESSION: No mammographic evidence of malignancy in the right breast. Ultrasoundexamination of the area of clinical concern at the 3:00 position 9 cm fromthe nipple demonstrates no mass or other abnormality. BI-RADS CATEGORY: 1 - NEGATIVE RECOMMENDATION: Screening bilateral mammogram is recommended in 1 year. Mammo Location: [facility], [facility], [address] [facility] [id number] -------- FINAL REPORT -------- Dictated By: Rajinder Bo Dictated Date: 07/28/2024 08:25 ET Assigned Physician: Rajinder Bo Reviewed and Electronically Signed By: Rajinder Bo Signed Date: 07/28/2024 09:23 ET Workstation ID: [id number] Transcribed By: Self Edit Transcribed Date: 07/28/2024 08:31 ET us Abimbola Lawrence MD IMG BI PROCEDURES Final Resul t from Last 3 Months Insurance [employer] [id number] Care Teams Pediatric Care Coordinator Relationship Specialty Start Date End Date Corwin Blank [address] [place] [id number] PCP - General Internal Medicine 06/03/24
== END ==
LOC: HO.CARD 14:00
PROVIDERS: PCP Internal Medicine; Visit Provider Nurse Practitioner Family
DX: R01.1 Cardiac murmur, unspecified (principal); R06.02 Shortness of breath
CPT/HCPCS: 93306

== ENCOUNTER → 2024-10-26 14:03 | Outpatient (BNV) | payer OTHER, SELFPAY | PROVIDERS: PCP Internal Medicine; Visit Provider Internal Medicine | DX: R01.1 Cardiac murmur, unspecified (principal); I51.7 Cardiomegaly | CPT/HCPCS: 93306 ==